=== PATIENT | female | born 1965 | race Caucasian/White ===

== ENCOUNTER 2016-04-22 12:02 | Day surgery (SDC) | payer MEDICAID ==
[2016-04-22] MEDS ORDERED: PROPOFOL 10 MG/ML VIAL IV ONE (14:00)
[2016-04-22] MEDS ORDERED: LIDOCAINE 2% MDV (20MG/ML) 20ML VIAL IV ONE (14:00)
[2016-04-22] MEDS ORDERED: MIDAZOLAM HCL 2MG/2ML VIAL IV ONE (14:00)
--- NOTE | 2016-04-24 15:08 | Operative Note ---
DATE OF SURGERY: 04/22/2016. REFERRING PHYSICIAN: Preeti Collier P.A.-C. PROCEDURE: Colonoscopy to the cecum. INDICATION: Colorectal cancer screening. ANESTHESIA: Intravenous sedation was administered by the Department of Anesthesiology and included Diprivan titrated to effect. PROCEDURE: Following informed consent from this alert individual, including a discussion of the risks and benefits of the procedure and an opportunity for the patient to ask questions, the patient was in the left lateral decubitus position. A digital rectal exam was performed. No abnormalities were detected. Following this, the Olympus PCF-180 video colonoscope was inserted into the rectum without resistance. The rectal mucosa had a normal appearance with normal folds and distensibility. The colonoscope was advanced up through the colon to the level of the cecum without much difficulty. Throughout the bowel, the mucosa appeared normal, folds were normal, and the bowel was fairly distensible. The cecum was defined by noting the appendiceal orifice and cecal pouch. Colon preparation was good. From the base of the cecum, the colonoscope was then withdrawn back through the bowel re-examining the mucosa upon withdrawal. Again no abnormalities were detected upon withdrawal. Retroflexion in the rectum was endoscopically unremarkable. The instrument was straightened and withdrawn. The patient tolerated the procedure well and was returned to the recovery area in stable condition. IMPRESSION: Unremarkable colonoscopy to the cecum. RECOMMENDATIONS: The patient was advised to have a recheck colonoscopy in ten years' time or sooner if problems arise. Follow up will be with Preeti Collier P.A.-C. RAMSES ALCAZAR D.O. Date Time JOB NUMBER: [id number] cc: Ministerio Beck
== END 2016-04-22 13:38 | disposition home or self-care (01) ==
LOC: HOP 12:02
PROVIDERS: ATTEND Internal Medicine Gastroenterology
DX: Z12.11 Encounter for screening for malignant neoplasm of colon (principal)

== ENCOUNTER 2016-06-27 17:20 | Observation (INO) | payer MEDICAID ==
--- NOTE | 2016-06-27 17:36 | Emergency Department Record ---
History of Present Illness - General Chief Complaint: Numbness Stated Complaint: FACIAL NUMBNESS Time Seen by Provider: 06/27/16 17:35 Source: Patient Mode of Arrival: Ambulatory Limitations: No limitations - History of Present Illness Initial Comments: The patient is here due to noticing L facial numbness about an hour ago. It is mild in severity. She denies any facial muscle weakness, blurred vision, BROOKE, or vomiting. Since the onset she has now developed lower leg weakness and numbness to the point they feel paralyzed and now she cannot walk. She initially walked into the ER but now feels that she cannot walk. She has a long hx of conversion disorder which does manifest as leg weakness and numbness. The patient states the leg issues are chronic for her during the conversion disorder and she gets them with anxiety. There is no reported arm numbness, weakness or any difficulty with her speech or swallowing. Onset/Timin -: Minutes(s) Location: Left face History of same: Yes Place: Home Severity: Mild Quality: Numb Improves With: None Worsens With: None On Anticoagulants: No Associated Symptoms: Denies other symptoms Treatments Prior to Arrival: None - [place] Coma Scale Eye Response: (4) Open spontaneously Motor Response: (6) Obeys commands Verbal Response: (5) Oriented [place] Total: 15 - Related Data Allergies/Adverse Reactions: Allergies Allergy/AdvReac Type Severity Reaction Status Date / Time No Known Drug Allergies Allergy Unverified 02/23/16 10:39 Travel Screening - Travel/Exposure Within Last 30 Days Have you traveled within the last 30 days?: No - Travel/Exposure Within Last Year Have you traveled outside the [place] in the last year?: No - Travel Symptoms Symptom Screening: None Review of Systems Constitutional: Denies: Chills, Fever Eyes: Denies: Eye discharge ENT: Denies: Congestion Respiratory: Denies: Cough, Dyspnea Cardiovascular: Denies: Arrhythmia, Chest pain Past Medical History - SOCIAL HISTORY Smoking Status: Light tobacco smoker (<10/day) Alcohol Use: None Drug Use: None - RESPIRATORY Hx Respiratory Disorders: Yes Hx Sleep Apnea: Yes Hx of CPAP: Yes - CARDIOVASCULAR Hx Cardio Disorders: No - NEURO Hx Neuro Disorders: Yes Hx Seizures: Yes (epileptic disorder.) Hx TIA: Yes (2013) Comment:: Sees a Neurologist - GI Hx GI Disorders: No - Hx Genitourinary Disorders: No - ENDOCRINE Hx Endocrine Disorders: No Hx Diabetes: No Hx Thyroid Disease: No - MUSCULOSKELETAL Hx Musculoskeletal Disorders: Yes Comment:: TENDONITIS-Right elbow - PSYCH Hx Psych Problems: Yes Hx Anxiety: Yes Hx Depression: Yes Comment:: Bi-polar - HEMATOLOGY/ONCOLOGY Hx Hematology/Oncology Disorders: Yes Hx Bruising: Yes Family Medical History Any Significant Family History?: Yes *Cancer Comment: maternal & paternal uncles-colon cancer Hx Diabetes: Father, Grandparents Hx Heart Disease: Father, Grandparents Physical Exam - General General Appearance: Alert, Oriented x3, Cooperative, No acute distress - Head Head exam: Atraumatic, Normocephalic, Normal inspection - Eye Eye exam: Normal appearance, PERRL, EOMI - ENT ENT exam: Normal exam, Mucous membranes moist, Normal external ear exam, Normal orophraynx, TM's normal bilaterally Throat exam: Normal inspection. negative: Tonsillar erythema, Tonsillar exudate - Neck Neck exam: Normal inspection, Full ROM. negative: Lymphadenopathy, Meningismus , Tenderness - Respiratory Respiratory exam: Normal lung sounds bilaterally. negative: Respiratory distress - Cardiovascular Cardiovascular Exam: Regular rate - Extremities Extremities exam: Normal inspection, Full ROM, Normal capillary refill. negative: Tenderness - Neurological Neurological exam: Abnormal gait, Alert, CN II-XII intact, Motor sensory deficit (The patient has some mild subjective numbness to the L lower facial muscles but there is no muscle weakness.), Oriented X3, Reflexes normal, Other ( The lower legs feel numb to the patient and she states they are now paralyzed and she will be unable to walk. Her reflexes are normal in the patellar area.). negative: Altered, Normal gait Course Vital Signs 06/27/16 17:23 Temperature 98.1 F Pulse Rate 71 Respiratory 18 Rate Blood Pressure 157/76 Pulse Ox 99 - Reevaluation(s) Reevaluation #1: The patient is doing very well at this time. She denies any new facial symptoms and has no weakness presently. She also denies any visual changes or any swallowing or speech issues. The patient states her legs still will not work but she is now barely able to move them. She also believes this all could be due to her conversion disorder. Since she is not able to walk we will admit her to the hospital for further evaluation and possibly a PT/OT eval. I did discuss this with Ninfa IVY) and she does accept the patient for Dr. Pablo. 06/27/16 18:58 Reevaluation #2: The patient now states her facial numbness is improving significantly. She also states her legs are now moving better. 06/27/16 19:02 Medical Decision Making - Data Complexity MDM Data: Labs Ordered and/or Reviewed, X-Ray Ordered and/or Reviewed, EKG Ordered and/or Reviewed - Lab Data Result diagrams: 06/27/16 17:53 06/27/16 17:53 - EKG Data -: EKG Interpreted by Me EKG: No Acute Changes, Normal EKG - Radiology Data Radiology results: Report reviewed (Head CT: Neg) Disposition Disposition: Admit Clinical Impression: Conversion disorder TIA (transient ischemic attack) Qualifiers: Transient cerebral ischemia type: unspecified Qualified Code(s): G45.9 - Transient cerebral ischemic attack, unspecified Decision to Admit: Admit from ER Decision to Admit Date: 06/27/16 Decision to Admit Time: 19:01 Accepting Physician: Bev Time Discussed w/Accepting Physician: 19:01 Forms: Patient Portal Access Time of Disposition: 19:01
[2016-06-27 17:59] LABS: BASO % 0.4 % (0-6); EOS % 2.5 % (0-6); GRAN % 54.4 % (47-80); HEMATOCRIT 41.8 % (35.0-47.0); HEMOGLOBIN 14.6 gm/dl (11.6-16.0); LYMPH % 34.9 % (16-45); MEAN CELL VOLUME 90.7 fl (81-97); MEAN CORPUSCULAR HEMOGLOBIN 31.7 pg (27-33); MEAN CORPUSCULAR HGB CONC 34.9 g/dl (32-36); MEAN PLATELET VOLUME 11.3 fl (7.4-10.4); MONO % 7.8 % (0-9); PLATELET COUNT 219 K/uL (130-400); RED BLOOD COUNT 4.61 M/uL (3.80-5.40); WHITE BLOOD COUNT W/O DIFF 7.6 K/uL (4.2-12.2)
[2016-06-27 18:11] LABS: ALB/GLOB RATIO 1.5 (1.1-1.8); ALBUMIN 4.5 gm/dL (3.5-5.0); ALKALINE PHOSPHATASE 76 U/L (38-126); ALT/SGPT 18 U/L (9-52); ANION GAP 6.1 (7-16); AST/SGOT 17 U/L (14-36); BILIRUBIN,TOTAL 0.44 mg/dL (0.2-1.3); BLOOD UREA NITROGEN 12 mg/dL (7-17); CARBON DIOXIDE 27.9 mmol/L (22-30); EST GLOMERULAR FILTRATION RATE > 60 ml/min; GLUCOSE,RANDOM 89 mg/dL (70-110); TOTAL PROTEIN 7.5 gm/dL (6.3-8.2)
[2016-06-27] MEDS ORDERED: ASPIRIN 325 MG TABLET PO ONE (18:46)
[2016-06-27] MEDS ORDERED: Non-Formulary MISC (Citalopram Hydrobromide [Celexa] 40 MG) PO SCH (22:00)
[2016-06-27] MEDS ORDERED: Non-Formulary MISC (Atorvastatin Calcium [Lipitor] 40 MG) PO SCH (22:00)
--- NOTE | 2016-06-28 07:21 | CT SCAN REPORT ---
EXAM: CT SCAN OF THE HEAD WITHOUT CONTRAST HISTORY: PATIENT COMPLAINS OF LEFT SIDED FACIAL NUMBNESS. DENIES ANY OTHER SYMPTOMS. TECHNIQUE: Serial axial CT scan of the head was performed at 2.5 mm intervals from the base of the skull to the apex without the use of intravenous contrast. No comparison CT's are available. FINDINGS: The ventricles, cisterns, and sulci appear within normal limits for size, shape and attenuation. There is no mass or mass effect. The hannah and white differentiation appear within normal limits. There is no CT evidence of intra or extraaxial fluid collection to suggest bleeding. The bone windows demonstrate no CT evidence of a fracture or dislocation of the skull. The paranasal sinuses are unremarkable. IMPRESSION: NO CT EVIDENCE OF AN ACUTE INTRACRANIAL PROCESS. JOB NUMBER: [id number] MTDD
--- NOTE | 2016-06-28 07:53 | History & Physical ---
History of Present Illness - Date of Service Date of Service for History & Physical: 06/28/16 - History of Present Illness Admitting Diagnosis: 1. TIA vs Conversion Disorder. History of Present Illness: 50 yo female admitted under observation for lower extremity weakness. PMHx of bipolar disorder, anxiety, conversion disorder, and smoking. Brought to the ED by son-in-law yesterday for left facial numbness. Onset was yesterday afternoon. Patient was sitting down watching TV when symptoms occurred. She denies any similar symptoms in the past. She reports h/o conversion disorder and a TIA 3 years ago. Denies change in vision, lightheadedness, dizziness, N/V, weakness, change in speech or swallowing, headache, pain or LOC. Patient walked into the ED, however once patient was evaluated, her lower extremities became too weak to ambulate. While in the ED, VS relatively unremarkable. Slightly elevated BP of 157/76. CBC/CMP unremarkable. EKG: sinus rhythm. Head CT: negative. patient started on home medications along with 325 mg of ASA. Admitted for observation. This morning, patient is sitting up in bed comfortably. Patient's LE weakness and left facial numbness have resolved. Patient has been ambulating throughout her room. She denies any extremity weakness, numbness/tingling, dizziness, n/v , abd pain, chest pain, sob, change in vision, change in voice/swallowing or speech, headache, pain, or change in gait. Normal appetite and GI/ function. Patient is requesting discharge home. Neurologist: Dr. La PCP: Dr. Cheng Travel Screening - Travel/Exposure Within Last 30 Days Have you traveled within the last 30 days?: No - Travel/Exposure Within Last Year Have you traveled outside the [place] in the last year?: No - Additonal Travel Details Have you been exposed to anyone with a communicable illness?: No - Travel Symptoms Symptom Screening: None Review of Systems Constitutional: Denies: Chills, Fever, Weakness Eyes: Denies: Eye discharge, Eye pain, Photophobia, Vision change ENT: Denies: Congestion Respiratory: Denies: Cough, Dyspnea Cardiovascular: Denies: Arrhythmia, Chest pain, Dyspnea on exertion Endocrine: Denies: Fatigue Gastrointestinal: Denies: Abdominal pain Neurological: Denies: Abnormal gait, Headache, Numbness, Paresthesias, Seizure, Tingling, Vertigo, Weakness Psychiatric: Denies: Auditory hallucinations, Visual hallucinations Past Medical History - SOCIAL HISTORY Smoking Status: Light tobacco smoker (<10/day) Alcohol Use: None Drug Use: None - RESPIRATORY Hx Respiratory Disorders: Yes Hx Sleep Apnea: Yes Hx of CPAP: Yes - CARDIOVASCULAR Hx Cardio Disorders: No - NEURO Hx Neuro Disorders: Yes Hx Seizures: Yes (epileptic disorder.) Hx TIA: Yes (2013) Comment:: Sees a Neurologist- [facility] - GI Hx GI Disorders: No - Hx Genitourinary Disorders: No - ENDOCRINE Hx Endocrine Disorders: No Hx Diabetes: No Hx Thyroid Disease: No - MUSCULOSKELETAL Hx Musculoskeletal Disorders: Yes Comment:: TENDONITIS-Right elbow - PSYCH Hx Psych Problems: Yes Hx Anxiety: Yes Hx Depression: Yes Comment:: Bi-polar - HEMATOLOGY/ONCOLOGY Hx Hematology/Oncology Disorders: Yes Hx Bruising: Yes Family Medical History Any Significant Family History?: Yes *Cancer Comment: maternal & paternal uncles-colon cancer Hx Diabetes: Father, Grandparents Hx Heart Disease: Father, Grandparents H&P Meds/Allergies - Allergies Allergies: Allergies Allergy/AdvReac Type Severity Reaction Status Date / Time No Known Drug Allergies Allergy Unverified 02/23/16 10:39 - Active Medications Active Medications: Current Medications Aspirin (Ecotrin (Ec)) 325 mg PO DAILY APRYL Magnesium Oxide (Mag Ox) 400 mg PO DAILY [facility] Non-Formulary Medication (Aripiprazole [Aripiprazole]) 2 mg PO DAILY [facility] Non-Formulary Medication (Atorvastatin Calcium [Lipitor]) 40 mg PO QHS [facility] Last Admin: 06/27/16 21:25 Dose: Not Given Non-Formulary Medication (Citalopram Hydrobromide [Celexa]) 40 mg PO QHS [facility] Last Admin: 06/27/16 21:25 Dose: Not Given Physical Exam - Vital Signs Vital Signs: Vital Signs - Last 24 Hrs Temp Pulse Pulse Resp BP BP Pulse Ox 06/28/16 05:00 97.7 F 72 18 116/75 97 06/28/16 00:07 97.6 F 70 18 101/66 97 06/27/16 21:33 97.6 F 71 18 138/82 98 06/27/16 20:11 58 L 18 06/27/16 19:33 97.5 F L 58 L 18 132/79 98 06/27/16 19:28 97.9 F 63 18 136/91 98 - General General Appearance: Alert, Oriented x3, Cooperative, No acute distress Limitations: No limitations - Head Head exam: Atraumatic, Normocephalic, Normal inspection - Eye Eye exam: Normal appearance, PERRL, EOMI - ENT ENT exam: Normal exam, Mucous membranes moist, Normal external ear exam, Normal orophraynx, TM's normal bilaterally Throat exam: Normal inspection. negative: Tonsillar erythema, Tonsillar exudate - Neck Neck exam: Normal inspection, Full ROM. negative: Lymphadenopathy, Meningismus , Tenderness - Respiratory Respiratory exam: Normal lung sounds bilaterally. negative: Respiratory distress - Cardiovascular Cardiovascular Exam: Regular rate - Extremities Extremities exam: Normal inspection, Full ROM, Normal capillary refill. negative: Tenderness - Neurological Neurological exam: Abnormal gait, Alert, CN II-XII intact, Oriented X3, Reflexes normal, Other. negative: Altered, Motor sensory deficit, Normal gait - Psychiatric Psychiatric exam: negative: Agitated, Anxious, Depressed, Flat affect, Homicidal ideation, Normal affect, Normal mood Results - Labs Result Diagrams: 06/27/16 17:53 06/27/16 17:53 VTE H&P Assessment - Risk for VTE Risk for VTE: No Risk Level: Low Risk Assessment Date: 06/28/16 Risk Assessment Time: 10:00 VTE Orders Placed or Will Be Placed: No VTE Reason for No Prophylaxis: Not Indicated Plan - Detailed Diagnosis and Plan (1) Conversion disorder Current Visit: Yes Status: Acute Base Code: F44.9 - DISSOCIATIVE AND CONVERSION DISORDER, UNSPECIFIED Comment: 06/28/16: left facial numbness and lower extremity weakness have resolved. Patient ambulating her room. Normal neurologic exam this morning. Denies numbness/tingling, weakness, change in vision, speech, or swallowing, dizziness, LOC, headache or confusion. Labs/head CT are negative. Continue 325 mg of PO ASA. (2) Left facial numbness Current Visit: Yes Status: Acute Base Code: R20.0 - ANESTHESIA OF SKIN Comment: 06/28/16: TIA vs. conversion disorder vs other? Symptoms have resolved. Normal neurologic exam. CT of head and labs are negative. Continue ASA 325 mg daily. (3) Full code status Current Visit: Yes Status: Acute Base Code: Z78.9 - OTHER SPECIFIED HEALTH STATUS Comment: 06/28/16: patient is full code (4) DVT prophylaxis Current Visit: Yes Status: Acute Base Code: [id number] - Comment: 06/28/16: low risk. continue 325 mg of ASA daily.
[2016-06-28] MEDS ORDERED: MAGNESIUM OXIDE 400 MG PO SCH (10:00)
[2016-06-28] MEDS ORDERED: ASPIRIN 325 MG TAB ENTERIC-COATED PO SCH (10:00)
[2016-06-28] MEDS ORDERED: ARIPIPRAZOLE 2 MG PO SCH (10:00)
--- NOTE | 2016-06-28 10:42 | Discharge Summary ---
Providers Discharge Summary Date: 06/28/16 Date of admission: 06/27/16 19:27 Expected Date of Discharge: 06/28/16 Attending physician: MATT LAWRENCE Primary care physician: Preeti Collier Physical Exam - Vital Signs Vital Signs: Vital Signs - Last 24 Hrs Temp Pulse Pulse Resp BP BP Pulse Ox 06/28/16 08:36 97.7 F 71 18 139/86 97 06/28/16 08:32 68 20 06/28/16 05:00 97.7 F 72 18 116/75 97 06/28/16 00:07 97.6 F 70 18 101/66 97 06/27/16 21:33 97.6 F 71 18 138/82 98 06/27/16 20:11 58 L 18 06/27/16 19:33 97.5 F L 58 L 18 132/79 98 06/27/16 19:28 97.9 F 63 18 136/91 98 - General General Appearance: Alert, Oriented x3, Cooperative, No acute distress Limitations: No limitations - Head Head exam: Atraumatic, Normocephalic, Normal inspection - Eye Eye exam: Normal appearance, PERRL, EOMI - ENT ENT exam: Normal exam, Mucous membranes moist, Normal external ear exam, Normal orophraynx, TM's normal bilaterally Throat exam: Normal inspection. negative: Tonsillar erythema, Tonsillar exudate - Neck Neck exam: Normal inspection, Full ROM. negative: Lymphadenopathy, Meningismus , Tenderness - Respiratory Respiratory exam: Normal lung sounds bilaterally. negative: Respiratory distress - Cardiovascular Cardiovascular Exam: Regular rate - GI/Abdominal GI/Abdominal exam: Soft, Normal bowel sounds - Rectal Rectal exam: Deferred - exam: Deferred - Extremities Extremities exam: Normal inspection, Full ROM, Normal capillary refill, Other ( normal reflexes). negative: Tenderness - Back Back exam: Reports: Normal inspection - Neurological Neurological exam: Abnormal gait, Alert, CN II-XII intact, Oriented X3, Reflexes normal, Other. negative: Altered, Motor sensory deficit, Normal gait - Psychiatric Psychiatric exam: negative: Agitated, Anxious, Depressed, Flat affect, Homicidal ideation, Normal affect, Normal mood Hospitalization - Hospitalization Admission Diagnosis: 1. TIA vs Conversion Disorder. - Problem List/Discharge Diagnosis (1) Conversion disorder Current Visit: Yes Status: Acute Base Code: F44.9 - DISSOCIATIVE AND CONVERSION DISORDER, UNSPECIFIED Comment: 06/28/16: left facial numbness and lower extremity weakness have resolved. Patient ambulating her room. Normal neurologic exam. Denies numbness/tingling, weakness, change in vision, speech, or swallowing, dizziness , LOC, headache or confusion. Labs/head CT are negative. Will continue 81 mg of PO ASA and all home medications. (2) Left facial numbness Current Visit: Yes Status: Acute Base Code: R20.0 - ANESTHESIA OF SKIN Comment: 06/28/16: TIA vs. conversion disorder vs other? Symptoms have resolved. Normal neurologic exam. CT of head and labs are negative. She will continue ASA 81 mg daily. Follow up with primary provider July 04 @ 10:20. Patient agree's to return regarding any new or worsening symptoms such as weakness, numbmness/tingling, change in gait, dizziness, headache, lightheadedness, change in vision/speech or swallowing. Patient will discuss f/ up visit with her Neurologist with primary provider. Encouraged smoking cessation. (3) Full code status Current Visit: Yes Status: Acute Base Code: Z78.9 - OTHER SPECIFIED HEALTH STATUS Comment: 06/28/16: patient remained full code - Hospitalization Course Disposition: Home, Self-Care Hospital Course: 50 yo female admitted under observation for lower extremity weakness. PMHx of bipolar disorder, anxiety, conversion disorder, and smoking. Brought to the ED by son-in-law yesterday for left facial numbness. Onset was yesterday afternoon. Patient was sitting down watching TV when symptoms occurred. She denies any similar symptoms in the past. She reports h/o conversion disorder and a TIA 3 years ago. Denies change in vision, lightheadedness, dizziness, N/V, weakness, change in speech or swallowing, headache, pain or LOC. Patient walked into the ED, however once patient was evaluated, her lower extremities became too weak to ambulate. While in the ED, VS relatively unremarkable. Slightly elevated BP of 157/76. CBC/CMP unremarkable. EKG: sinus rhythm. Head CT: negative. patient started on home medications along with 325 mg of ASA. Admitted for observation. This morning, patient is sitting up in bed comfortably. Patient's LE weakness and left facial numbness have resolved. Patient has been ambulating throughout her room. She denies any extremity weakness, numbness/tingling, dizziness, n/v , abd pain, chest pain, sob, change in vision, change in voice/swallowing or speech, headache, pain, or change in gait. Normal appetite and GI/ function. Patient is requesting discharge home. Neurologist: Dr. La PCP: Dr. Lawrence Condition at Discharge: (1) Good Discharge Plan - Discharge Instructions Activity at Discharge: Resume Usual Activities As Tolerated Diet at Discharge: Regular Diet Instructions: Transient Ischemic Attack (DC), Anxiety (DC) Additional Instructions: Follow up [place] Dr La [place] [place] Follow up with Preeti next week Resume home meds Diet and activity as tolerated. Return to the ED if becoming worse.
[2016-06-28] MEDS ORDERED: PATIENT OWN MED: ATORVASTATIN 40 MG PO SCH (22:00)
[2016-06-28] MEDS ORDERED: PATIENT OWN MED: CITALOPRAM 40 MG PO SCH (22:00)
== END 2016-06-28 11:20 | disposition home or self-care (01) ==
LOC: ER 17:20 → MEDSURG 19:27
PROVIDERS: ADMIT Family Medicine; ATTEND Family Medicine
DX: F44.9 Dissociative and conversion disorder, unspecified (principal); R20.0 Anesthesia of skin; Z78.9 Other specified health status; F31.9 Bipolar disorder, unspecified; F17.200 Nicotine dependence, unspecified, uncomplicated; R53.1 Weakness
CPT/HCPCS: 99285 ×2; 85025; 80053; 70450; 93005 ×2; 93010 ×2; G0378 ×2; 99220